=== PATIENT | female | born 1980 | race Caucasian/White ===

== ENCOUNTER 2023-01-23 14:49 | Emergency (ER) | payer OTHER, SELFPAY ==
[2023-01-23 14:58] VITALS: BP 96/42; PULSE 74; RESP 18; TEMP 36.8; O2SAT 98
--- NOTE | 2023-01-23 15:00 | DI.RAD_ITS ---
Exam(s) XR KNEE RT 3V AP,LAT,JANELL EXAM: XR KNEE RT 3V AP,LAT,JANELL CLINICAL HISTORY: medial knee pain. TECHNIQUE: 2D digital imaging was performed. COMPARISON: No exams were available for comparison FINDINGS: 3 views No evidence of acute fracture. Minimal aunt of increased joint fluid. No large joint effusion. Bon e density normal. No osseous lesions. No degenerative changes. IMPRESSION: No osseous findings. Small amount of increased joint fluid noted. DATA REPOSITORY: RADIATION DOSE DELIVERED:
--- NOTE | 2023-01-23 15:04 | W.ED.GENAD ---
Discharge Plan Disposition Patient Disposition: Home Discharge Details Clinical Impression: Knee sprain [facility] Kulwant Howell Home Meds and New Rx's Prescriptions: No Action No Known Home Meds Discharge Instructions Instructions: Knee Sprain (ED), R.I.C.E. Treatment (ED) Additional Instructions: At this time your radiological imaging showed no signs of acute fracture or dislocation. You may slowly advance activity as tolerated but it is recommended that you wear the knee brace for the next 2 to 4 weeks as needed for discomfort. You may apply ice and take [id number] pain medication as needed for discomfort. If not improving in the next 1 to 2 weeks please follow-up with local orthopedist or primary care provider for reassessment and referral as needed Referrals: Primary Care Provider [Outside] (Follow-up with your primary care provider or local orthopedist if not improving in the next 1 to 2 weeks) Discharge Data Discharge Date/Time-TO BE ENTERED AT DEPARTURE: 01/23/23 15:39 Medical Decision Making Patient presenting to the emergency department for chief complaint of right knee injury. Patient reports approximately 1 hour prior to arrival she was skiing and right leg had hyperflexion injury and she felt a pop in her knee. She states at rest pain is very mild but movement especially full extension does seem to worsen discomfort. Physical exam shows some mild lateral muscular tenderness, does have medial tenderness with valgus testing otherwise ligamentous exam is unremarkable. Given that patient is having difficulty with weightbearing activities will perform radiological imaging. Patient denies any chance of . Patient denies any need for pain medication pending results. Review of radiological imaging shows no acute fracture or dislocation no obvious soft tissue abnormality noted. Will place patient in hinged knee brace. Patient given crutches for comfort. Patient to follow-up with local orthopedist for reassessment if not improving in the next 1 to 2 weeks. Conservative management of knee sprain was discussed. After discussion of diagnosis and plan of care patient has no further needs, questions, or concerns and states clear understanding to return to the emergency department for any worsening symptoms. This documentation was generated using [email or web address] system, please disregard any oddities of phrase or misspellings. Imaging Data Radiologic Study: Attestation: I personally reviewed and interpreted this imaging study as follows: Imaging: X-Ray Radiologist's impression: Exam(s) XR KNEE RT 3V AP,LAT,JANELL EXAM: XR KNEE RT 3V AP,LAT,JANELL CLINICAL HISTORY: medial knee pain. TECHNIQUE: 2D digital imaging was performed. COMPARISON: No exams were available for comparison FINDINGS: 3 views No evidence of acute fracture. Minimal aunt of increased joint fluid. No large joint effusion. Bone density normal. No osseous lesions. No degenerative changes. IMPRESSION: No osseous findings. Small amount of increased joint fluid noted. HPI General Mode of arrival: wheelchair. Date/Time Provider Initiated Documentation: 01/23/23 14:56. Limitations to Documentation: no limitations. Information obtained by: patient and RN notes reviewed. History of Present Illness 42 year old F presents to the emergency department with the chief complaint of Hyperflexion of knee while skiing, described as mild, Quality is described as aching, and is localized to the right and lower extremity. Patient started experiencing this hour(s) (1) and it has been constant. Immobilization improves symptom(s), Movement worsens symptoms . Patient notes no other symptoms.. Patient did receive the following treatments prior to arrival, none Related Data Home Medications Medication Instructions Recorded Confirmed Unknown [No Known Home Meds] 01/23/23 01/23/23 Allergies Allergy/AdvReac Type Severity Reaction Status Date / Time No Known Allergies Allergy Unverified 01/23/23 15:03 General Stated Complaint: Orthopedic SEDRICK: 4 Review of Systems Narrative: 6 systems reviewed and unremarkable except what is marked below. Musculoskeletal Musculoskeletal: Reports as per HPI, Reports arthralgias, Reports limited range of motion, Denies numbness and Denies tingling Neurologic Neurologic: Denies numbness and Denies tingling PFSH All Active Problems (Updated 01/23/23 @ 15:26 by Kulwant Howell NP) Knee sprain (Acute) Social History Smoking/Tobacco Use Status: Never Smoking risk assessment performed?: Yes Alcohol Intake: never Substance use type: does not use Do you feel safe at home: Yes Do you feel safe in your relationship?: Yes Exam Const General: cooperative, no acute distress and not ill appearing Orientation: alert, awake and oriented x3 Resp Effort & Inspection: normal respiratory effort, able to speak in complete sentences and no respiratory distress Skin General skin exam: no rashes or lesions noted Neuro General: patient alert, patient awake, patient oriented x3, moves all extremities and no focal motor deficits Extrem General: normal exam except as noted Right lower extremity: knee Details: tenderness Location: of the popliteal fossa; not of the pre-patellar area and not of the infrapatellar area, abnormal ROM Details: pain with active ROM during Details: in extension and in flexion, knee ligament exam normal Details: anterior drawer test normal, posterior drawer test normal and varus stress test normal and knee ligament exam abnormal Details: valgus stress test normal; no lacerations, no crepitus and no deformity Course Vital Signs Vital signs: Vital Signs Temperature 36.8 C 01/23/23 14:58 Pulse 74 01/23/23 14:58 Respiratory Rate 18 01/23/23 14:58 Blood Pressure 96/42 L 01/23/23 14:58 Pulse Oximetry 98 01/23/23 14:58 Temperature 36.8 C 01/23/23 14:58 Temperature Source Tympanic 01/23/23 14:58 Pulse 74 01/23/23 14:58 Respiratory Rate 18 01/23/23 14:58 Respiratory Effort Normal, Non-Labored 01/23/23 15:01 Blood Pressure 96/42 L 01/23/23 14:58 Pulse Oximetry 98 01/23/23 14:58 Oxygen Delivery Method Room Air 01/23/23 14:58 Oxygen Flow Rate 0 01/23/23 14:58
--- NOTE | 2023-01-23 15:50 | DI.VRAD_ITS ---
PROCEDURE INFORMATION: Exam: XR Right Knee Exam date and time: 01/23/2023 3:17 PM Age: 42 years old Clinical indication: Injury or trauma; Other: Skiing injury; Other: Medial knee pain; Injury date: 01/23/23 TECHNIQUE: Imaging protocol: Radiologic exam of the right knee. Views: 3 views. COMPARISON: No relevant prior studies available. FINDINGS: Bones/joints: There is no evidence of acute fracture.There is no evidence of malalignment or dislocation. Soft tissues: Normal. IMPRESSION: There is no evidence of acute fracture.There is no evidence of malalignment or dislocation. Dictated and Authenticated by: Kendall Spicer MD. Ordering:FAHAD Blum MD
== END 2023-01-23 15:39 | disposition home or self-care (01) ==
PROVIDERS: Emergency Provider Nurse Practitioner Family
DX: S83.8X1A Sprain of other specified parts of right knee, initial encounter (principal); X50.1XXA Overexertion from prolonged static or awkward postures, initial encounter
CPT/HCPCS: 29505; 73562; 99283